=== PATIENT | male | born 1940 | race Caucasian/White ===

== ENCOUNTER 2020-06-11 09:58 | Inpatient (IN) ==
[2020-06-11] MEDS ORDERED: CeFAZolin Syr 2,000MG/20 ML 2,000 MG/20 ML SYRINGE IVPB ONE (10:28)
[2020-06-11] MEDS ORDERED: Chlorhexidine Rinse 15 ML MOUTHWASH MM STA (10:29)
[2020-06-11] MEDS: Ringers Solution, Lactated 1,000 ML IVC SCH (11:00)
[2020-06-11] MEDS ORDERED: Dextrose 50 % in Water (Vial) 30 ML, Sodium Bicarbonate 20 MEQ, Lidocaine 1% 5 ML, Insu... TH ONE ×3 (11:20)
[2020-06-11] MEDS ORDERED: Norepinephrine 4 MG in 0.9 % Sodium Chloride 250 ML IVC PRN (11:20)
[2020-06-11] MEDS ORDERED: Insulin Human Regular 100 UNIT in 0.9 % Sodium Chloride 100 ML IV PRN (11:20)
[2020-06-11] MEDS ORDERED: Heparin 15,000 UNIT in 0.9 % Sodium Chloride 500 ML IV ONE (11:20)
[2020-06-11] MEDS ORDERED: Dextrose 50 % in Water (Vial) 30 ML, Sodium Bicarbonate 20 MEQ, Potassium Chloride 15 M... TH ONE (11:20)
[2020-06-11] MEDS ORDERED: *HR* FentaNYL (PF) 1,000 MCG/20 ML VIAL ONE (11:53)
[2020-06-11] MEDS ORDERED: *HR* Midazolam HCl 5 MG/5 ML VIAL IVP ONE (11:53)
[2020-06-11] MEDS ORDERED: *HR* Propofol 200 MG/20 ML VIAL IVP ONE (11:53)
[2020-06-11] MEDS ORDERED: *HR* Rocuronium Bromide 50 MG/5 ML VIAL ONE ×3 (11:56→16:22)
[2020-06-11] MEDS ORDERED: Dexamethasone 4 MG/ML VIAL ONE (11:56)
[2020-06-11] MEDS ORDERED: *HR* PHENYLEPHRINE 1,000 MCG/10 ML SYRINGE IVP ONE (11:56)
[2020-06-11] MEDS ORDERED: Lidocaine 2% Syringe 100 MG/5 ML ONE (11:57)
[2020-06-11] MEDS ORDERED: Famotidine 20 MG/2 ML VIAL ONE (11:57)
[2020-06-11] MEDS ORDERED: Tranexamic Acid 1,000 MG/10 ML VIAL ONE (11:57)
[2020-06-11] MEDS ORDERED: *HR* Magnesium Sulfate 1 GM/2 ML VIAL ONE (11:57)
[2020-06-11] MEDS ORDERED: Albumin Human 25% 25 GM/100 ML IV.SOLN IVPB ONE (12:22)
[2020-06-11] MEDS ORDERED: Mannitol 25% vial 12.5 GM/50 ML VIAL IVPB ONE (12:22)
[2020-06-11] MEDS ORDERED: Lidocaine 2% Syringe 100 MG/5 ML IVP ONE (12:22)
[2020-06-11] MEDS ORDERED: *HR* Phenylephrine 10 MG/ML VIAL IVC ONE (12:22)
[2020-06-11] MEDS ORDERED: *HR* Heparin 10,000 UNIT/10 ML VIAL IR ONE (12:22)
[2020-06-11] MEDS ORDERED: Tranexamic Acid 1,000 MG/10 ML VIAL IR ONE (12:22)
[2020-06-11] MEDS ORDERED: *HR* Magnesium Sulfate 2 GM/50 ML PIGGYBACK IVPB ONE (12:22)
[2020-06-11 12:33] LABS: ABG Base Excess 1 mEq/L (-2 to 3); ABG Chloride 105 mEq/L (98-107); ABG Glucose 83 mg/dL (60-95); ABG HCO3 26 mEq/L (21-27); ABG Ionized Calcium 1.25 mmol/L (1.15-1.35); ABG Oxygen Saturation 100 % (95-98); ABG PCO2 46 mmHg (35-45); ABG PH 7.37 pH Units (7.32-7.45); ABG PO2 263 mmHg (85-104); ABG TCO2 28 mEq/L (20-26)
[2020-06-11 14:20] LABS: ABG Base Excess 0 mEq/L (-2 to 3); ABG Chloride 108 mEq/L (98-107); ABG Glucose 73 mg/dL (60-95); ABG HCO3 25 mEq/L (21-27); ABG Ionized Calcium 1.14 mmol/L (1.15-1.35); ABG Oxygen Saturation 100 % (95-98); ABG PCO2 43 mmHg (35-45); ABG PH 7.37 pH Units (7.32-7.45); ABG PO2 304 mmHg (85-104); ABG TCO2 26 mEq/L (20-26)
[2020-06-11 14:51] LABS: ABG Base Excess 4 mEq/L (-2 to 3); ABG Chloride 101 mEq/L (98-107); ABG Glucose 128 mg/dL (60-95); ABG HCO3 27 mEq/L (21-27); ABG Ionized Calcium 1.05 mmol/L (1.15-1.35); ABG Oxygen Saturation 100 % (95-98); ABG PCO2 34 mmHg (35-45); ABG PH 7.51 pH Units (7.32-7.45); ABG PO2 471 mmHg (85-104); ABG TCO2 28 mEq/L (20-26)
[2020-06-11] MEDS ORDERED: *HR* Amiodarone 150 MG/3 ML VIAL IVPB ONE (15:43)
[2020-06-11] MEDS ORDERED: Amiodarone Premix 360 MG/200 ML BAG IVC ONE ×2 (15:43→17:08)
[2020-06-11] MEDS ORDERED: Protamine Sulfate 250 MG/25 ML VIAL IVP ONE (15:43)
[2020-06-11] MEDS ORDERED: Calcium Gluconate 1,000 MG/10 ML VIAL ONE (15:43)
[2020-06-11] MEDS ORDERED: Albumin Human 5% 0 GM/0 ML IV.SOLN ONE (15:47)
[2020-06-11] MEDS ORDERED: 0.9 % Sodium Chloride 250 ML ONE (15:48)
[2020-06-11 15:54] LABS: ABG Base Excess 3 mEq/L (-2 to 3); ABG Chloride 103 mEq/L (98-107); ABG Glucose 108 mg/dL (60-95); ABG HCO3 27 mEq/L (21-27); ABG Ionized Calcium 1.13 mmol/L (1.15-1.35); ABG Oxygen Saturation 100 % (95-98); ABG PCO2 39 mmHg (35-45); ABG PH 7.45 pH Units (7.32-7.45); ABG PO2 509 mmHg (85-104); ABG TCO2 28 mEq/L (20-26)
[2020-06-11 16:13] LABS: ABG Base Excess 3 mEq/L (-2 to 3); ABG Chloride 103 mEq/L (98-107); ABG Glucose 72 mg/dL (60-95); ABG HCO3 27 mEq/L (21-27); ABG Ionized Calcium 1.42 mmol/L (1.15-1.35); ABG Oxygen Saturation 100 % (95-98); ABG PCO2 42 mmHg (35-45); ABG PH 7.42 pH Units (7.32-7.45); ABG PO2 376 mmHg (85-104); ABG TCO2 29 mEq/L (20-26)
[2020-06-11] MEDS ORDERED: Albumin Human 5% 12.5 GM/250 ML IV.SOLN ONE (16:38)
[2020-06-11 16:44] LABS: ABG Base Excess 0 mEq/L (-2 to 3); ABG Chloride 108 mEq/L (98-107); ABG Glucose 59 mg/dL (60-95); ABG HCO3 24 mEq/L (21-27); ABG Ionized Calcium 1.19 mmol/L (1.15-1.35); ABG Oxygen Saturation 100 % (95-98); ABG PCO2 36 mmHg (35-45); ABG PH 7.44 pH Units (7.32-7.45); ABG PO2 308 mmHg (85-104); ABG TCO2 25 mEq/L (20-26)
[2020-06-11] MEDS ORDERED: *HR* Dextrose 50 % in Water (Syg) 50 ML SYRINGE ONE (16:44)
[2020-06-11] MEDS ORDERED: Ondansetron 4 MG/2 ML VIAL IVP PRN (17:08)
[2020-06-11] MEDS ORDERED: Calcium Gluconate 1gm/50mL 1 GM/50 ML BAG IVPB PRN (17:08)
[2020-06-11] MEDS ORDERED: Albumin Human 5% 12.5 GM/250 ML IV.SOLN IVPB PRN (17:08)
[2020-06-11] MEDS ORDERED: *HR* Dextrose 50 % in Water (Vial) 50 ML VIAL IVP PRN (17:08)
[2020-06-11] MEDS ORDERED: Naloxone 0.4 MG/ML INJ IVP PRN (17:08)
[2020-06-11] MEDS ORDERED: Acetaminophen 650 MG RECTAL SUPP RC PRN (17:08)
[2020-06-11] MEDS ORDERED: Insulin Regular, Human 100 UNIT/ML IV PRN (17:08)
[2020-06-11] MEDS ORDERED: Potassium Chloride 40 MEQ/200 ML BAG IVPB PRN (17:08)
[2020-06-11] MEDS ORDERED: Insulin Human Regular 100 UNIT in 0.9 % Sodium Chloride 100 ML IVC SCH (17:15)
[2020-06-11] MEDS ORDERED: niCARdipine 20 MG/200 ML MLS IVC ONE (17:47)
[2020-06-11] MEDS: niCARdipine 20 MG/200 ML MLS IVC SCH ×3 (18:00→23:35)
[2020-06-11 18:10] LABS: Basophils % 0.3 %; Eosinophils # 0.1 K/mcL (0.0-0.6); Eosinophils % 0.4 %; Hematocrit 31.4 % (37.5-50.1); Hemoglobin 10.5 g/dL (12.9-16.9); Immature Granulocytes % 0.6 % (0-4); Lymphocytes # 0.6 K/mcL (0.6-4.6); Lymphocytes % 4.8 %; Mean Corpuscular HGB Conc 33.4 g/dL (31.6-35.5); Mean Corpuscular Hemoglobin 27.5 pg (28.0-33.3); Mean Corpuscular Volume 82.2 fL (83.0-100.0); Monocytes # 0.7 K/mcL (0.0-1.3); Monocytes % 5.7 %; Platelet Count 125 K/mcL (140-400); Red Blood Count 3.82 M/mcL (4.19-5.50); Red Cell Distribution Width 12.6 % (11.5-14.5); Segmented Neutrophils % 88.2 %; White Blood Count 12.2 K/mcL (4.3-11.1)
[2020-06-11 18:11] LABS: Neutrophils # 10.8 K/mcL (1.6-8.9)
[2020-06-11 18:17] LABS: ABG Base Excess 2 mEq/L (-2 to 3); ABG HCO3 26 mEq/L (21-27); ABG Oxygen Saturation 99 % (95-98); ABG PCO2 41 mmHg (35-45); ABG PH 7.42 pH Units (7.32-7.45); ABG PO2 122 mmHg (85-104); ABG TCO2 28 mEq/L (20-26)
[2020-06-11] MEDS: Pantoprazole 40 MG VIAL IVP SCH (18:29)
[2020-06-11] MEDS: Metoclopramide 10 MG/2 ML VIAL IVP SCH (18:29)
[2020-06-11 18:31] LABS: BUN/Creatinine Ratio 14 (6-26); Blood Urea Nitrogen 16 mg/dL (8-23); Calcium 8.7 mg/dL (8.6-10.3); Carbon Dioxide 27 mEq/L (23-29); Chloride 108 mEq/L (98-107); Glucose 139 mg/dL (70-105); Magnesium 2.5 mg/dL (1.6-2.6); Osmolality,Calculated 291 (280-300); Potassium 3.9 mEq/L (3.5-5.1); Sodium 139 mEq/L (136-145); eGFR For African Americans > 60 (> 60); eGFR For Non-African Americans > 60 (> 60)
[2020-06-11] MEDS: 0.9 % Sodium Chloride w KCl 20 MEQ/1,000 ML MLS IVC SCH (18:50)
[2020-06-11 19:05] LABS: INR 1.2; Prothrombin Time 13.5 Seconds (9.4-12.1)
[2020-06-11 19:07] LABS: Activated Partial Thrombo Time 30.3 Seconds (26.0-36.0)
[2020-06-11] MEDS: Norepinephrine 4 MG/254 ML IV.SOLN IVC SCH (20:13)
[2020-06-11] MEDS: Chlorhexidine Rinse 15 ML MOUTHWASH MM SCH (20:23)
[2020-06-11] MEDS: Furosemide 20 MG/2 ML VIAL IVP SCH (20:23)
[2020-06-11] MEDS: *HR* OxyCODONE/APAP 5/325 TABLET PO PRN (20:24)
[2020-06-11] MEDS: CeFAZolin 2 GM/120 ML BAG IVPB SCH (20:28)
[2020-06-11] MEDS: *HR* FentaNYL (PF) 100 MCG/2 ML VIAL IVP PRN (20:56)
[2020-06-11] MEDS: Amiodarone Premix 360 MG/200 ML BAG IVC SCH (21:42)
[2020-06-11 22:06] LABS: ABG Base Excess 0 mEq/L (-2 to 3); ABG HCO3 25 mEq/L (21-27); ABG Oxygen Saturation 99 % (95-98); ABG PCO2 40 mmHg (35-45); ABG PO2 145 mmHg (85-104); ABG TCO2 26 mEq/L (20-26); Blood Gas Modality ASSIST CONTROL; Blood Gas VT 600 cc
[2020-06-12] MEDS: Metoclopramide 10 MG/2 ML VIAL IVP SCH ×4 (00:38→18:31)
[2020-06-12] MEDS: *HR* OxyCODONE/APAP 5/325 TABLET PO PRN ×3 (00:39→18:22)
[2020-06-12 02:09] LABS: ABG Base Excess -1 mEq/L (-2 to 3); ABG HCO3 24 mEq/L (21-27); ABG Oxygen Saturation 96 % (95-98); ABG PCO2 39 mmHg (35-45); ABG PO2 83 mmHg (85-104); ABG TCO2 25 mEq/L (20-26)
[2020-06-12 04:56] LABS: Basophils % 0.1 %; Hematocrit 31.9 % (37.5-50.1); Hemoglobin 10.9 g/dL (12.9-16.9); Immature Granulocytes % 0.3 % (0-4); Lymphocytes % 7.2 %; Mean Corpuscular HGB Conc 34.2 g/dL (31.6-35.5); Mean Corpuscular Hemoglobin 28.9 pg (28.0-33.3); Mean Corpuscular Volume 84.6 fL (83.0-100.0); Mean Platelet Volume 10.8 fL (9.4-12.4); Monocytes # 0.9 K/mcL (0.0-1.3); Monocytes % 6.7 %; Neutrophils # 11.6 K/mcL (1.6-8.9); Platelet Count 146 K/mcL (140-400); Red Blood Count 3.77 M/mcL (4.19-5.50); Segmented Neutrophils % 85.7 %; White Blood Count 13.5 K/mcL (4.3-11.1)
[2020-06-12 04:58] LABS: INR 1.2; Prothrombin Time 13.5 Seconds (9.4-12.1)
[2020-06-12 05:00] LABS: Activated Partial Thrombo Time 26.1 Seconds (26.0-36.0)
[2020-06-12 05:03] LABS: Calcium 8.5 mg/dL (8.6-10.3); Magnesium 2.1 mg/dL (1.6-2.6); Potassium 3.8 mEq/L (3.5-5.1)
[2020-06-12] MEDS: niCARdipine 20 MG/200 ML MLS IVC SCH ×4 (05:12→20:11)
[2020-06-12] MEDS: *HR* FentaNYL (PF) 100 MCG/2 ML VIAL IVP PRN (06:11)
[2020-06-12] MEDS: CeFAZolin 2 GM/120 ML BAG IVPB SCH (06:11)
[2020-06-12] MEDS ORDERED: D5% in Water 1,000 ML IVC PRN (07:49)
[2020-06-12] MEDS ORDERED: Dextrose Gel 15 GM/37.5 ML TUBE PO PRN ×2 (07:49)
[2020-06-12] MEDS ORDERED: *HR* Dextrose 50 % in Water (Vial) 50 ML VIAL IVP PRN (07:49)
[2020-06-12] MEDS: Aspirin Enteric Coated 81 MG Tablet PO SCH (07:50)
[2020-06-12] MEDS: Chlorhexidine Rinse 15 ML MOUTHWASH MM SCH ×2 (07:50→20:09)
[2020-06-12] MEDS: Furosemide 20 MG/2 ML VIAL IVP SCH ×2 (07:50→20:10)
[2020-06-12] MEDS: Pantoprazole 40 MG VIAL IVP SCH (07:51)
[2020-06-12] MEDS: Amiodarone Premix 360 MG/200 ML BAG IVC SCH ×2 (08:08→20:09)
[2020-06-12] MEDS: *HR* Heparin 5,000 UNIT/ML VIAL SQ SCH ×2 (08:15→18:32)
[2020-06-12] MEDS: Acetaminophen 325 MG TABLET PO PRN (11:47)
[2020-06-12] MEDS: Insulin LISPRO 300 UNITS/3 ML VIAL SQ SCH ×3 (11:48→20:11)
[2020-06-12] MEDS: 0.9 % Sodium Chloride w KCl 20 MEQ/1,000 ML MLS IVC SCH (15:39)
[2020-06-12] MEDS: Norepinephrine 4 MG/254 ML IV.SOLN IVC SCH (19:25)
[2020-06-12] MEDS: Ringers Solution, Lactated 1,000 ML IVC SCH (19:25)
[2020-06-13] MEDS: Metoclopramide 10 MG/2 ML VIAL IVP SCH ×5 (00:36→23:19)
[2020-06-13] MEDS: *HR* OxyCODONE/APAP 5/325 TABLET PO PRN ×3 (01:02→23:46)
[2020-06-13] MEDS: niCARdipine 20 MG/200 ML MLS IVC SCH ×5 (01:59→23:20)
[2020-06-13 05:06] LABS: Basophils % 0.2 %; Hemoglobin 9.5 g/dL (12.9-16.9); Immature Granulocytes % 0.6 % (0-4); Lymphocytes # 1.2 K/mcL (0.6-4.6); Lymphocytes % 9.1 %; Mean Corpuscular HGB Conc 32.8 g/dL (31.6-35.5); Mean Corpuscular Hemoglobin 28.4 pg (28.0-33.3); Mean Corpuscular Volume 86.8 fL (83.0-100.0); Mean Platelet Volume 10.6 fL (9.4-12.4); Monocytes % 7.5 %; Neutrophils # 10.7 K/mcL (1.6-8.9); Platelet Count 144 K/mcL (140-400); Red Blood Count 3.34 M/mcL (4.19-5.50); Red Cell Distribution Width 13.4 % (11.5-14.5); Segmented Neutrophils % 82.6 %
[2020-06-13 05:32] LABS: Potassium 4.7 mEq/L (3.5-5.1)
[2020-06-13] MEDS: Acetaminophen 325 MG TABLET PO PRN ×2 (05:53→20:20)
[2020-06-13] MEDS: *HR* Heparin 5,000 UNIT/ML VIAL SQ SCH ×2 (05:59→17:13)
[2020-06-13] MEDS: Insulin LISPRO 300 UNITS/3 ML VIAL SQ SCH ×4 (07:23→20:15)
[2020-06-13] MEDS: Furosemide 20 MG/2 ML VIAL IVP SCH (07:26)
[2020-06-13] MEDS: Aspirin Enteric Coated 81 MG Tablet PO SCH (08:01)
[2020-06-13] MEDS: Pantoprazole 40 MG VIAL IVP SCH (08:01)
[2020-06-13] MEDS: Chlorhexidine Rinse 15 ML MOUTHWASH MM SCH ×2 (08:01→20:14)
[2020-06-13] MEDS: Ringers Solution, Lactated 1,000 ML IVC SCH (08:02)
[2020-06-13] MEDS: Amiodarone Premix 360 MG/200 ML BAG IVC SCH ×2 (09:20→21:40)
[2020-06-13] MEDS ORDERED: 0.9 % Sodium Chloride 500 ML IVC ONE (09:59)
[2020-06-13 10:26] LABS: Bilirubin,Urine Negative (Negative); Blood,Urine Moderate (Negative); Clarity,Urine Turbid (Clear); Color,Urine Yellow (Yellow); Glucose,Urine (UA) 50 mg/dL (Normal); Granular Casts,Urine Few per lpf (None Seen); Hyaline Casts,Urine Many per lpf (None Seen); Ketones,Urine Negative (Negative); Leukocyte Esterase,Urine Negative (Negative); Mucus,Urine Few per lpf (None-Few); Nitrite,Urine Negative (Negative); PH,Urine 5.5 pH Units (5.0-8.0); Protein,Urine 200 mg/dL (Neg-Trace); RBC,Urine 15-30 per hpf (0-3); Renal Epithelial Cells,Urine Few per hpf (None-Few); Squamous Epithelial Cell,Urine Few per hpf (None-Few); Transitional Epi Cells,Urine Few per hpf (None-Few); Urobilinogen,Urine Normal (Normal)
[2020-06-13 10:37] LABS: Complement C3 100 mg/dL (87-200)
[2020-06-13 10:38] LABS: Uric Acid 6.5 mg/dL (2.3-7.6)
[2020-06-13 10:45] LABS: Creatinine,Urine 147 mg/dL
[2020-06-13 10:46] LABS: Microalbumin,Urine > 1350 mg/L; Protein/Creatinine Ratio,Urine 1.46 mg/mg (0.00-0.20)
[2020-06-13] MEDS: Norepinephrine 4 MG/254 ML IV.SOLN IVC SCH (11:02)
[2020-06-14 04:15] LABS: Basophils % 0.1 %; Eosinophils % 0.2 %; Hematocrit 26.9 % (37.5-50.1); Hemoglobin 8.7 g/dL (12.9-16.9); Immature Granulocytes % 0.5 % (0-4); Lymphocytes # 0.9 K/mcL (0.6-4.6); Lymphocytes % 8.5 %; Mean Corpuscular HGB Conc 32.3 g/dL (31.6-35.5); Mean Corpuscular Hemoglobin 27.6 pg (28.0-33.3); Mean Corpuscular Volume 85.4 fL (83.0-100.0); Mean Platelet Volume 10.8 fL (9.4-12.4); Monocytes # 0.7 K/mcL (0.0-1.3); Neutrophils # 8.9 K/mcL (1.6-8.9); Nucleated Red Blood Cells 0.5 /100 WBC (0); Platelet Count 116 K/mcL (140-400); Red Blood Count 3.15 M/mcL (4.19-5.50); Red Cell Distribution Width 13.2 % (11.5-14.5); Segmented Neutrophils % 83.7 %; White Blood Count 10.6 K/mcL (4.3-11.1)
[2020-06-14 04:36] LABS: Calcium 7.6 mg/dL (8.6-10.3); Potassium 4.2 mEq/L (3.5-5.1)
[2020-06-14] MEDS: niCARdipine 20 MG/200 ML MLS IVC SCH ×6 (05:15→21:11)
[2020-06-14] MEDS: Metoclopramide 10 MG/2 ML VIAL IVP SCH ×2 (05:17→11:44)
[2020-06-14] MEDS: *HR* Heparin 5,000 UNIT/ML VIAL SQ SCH ×2 (05:18→19:09)
[2020-06-14] MEDS: Aspirin Enteric Coated 81 MG Tablet PO SCH (08:48)
[2020-06-14] MEDS: Pantoprazole 40 MG VIAL IVP SCH (08:48)
[2020-06-14] MEDS: Chlorhexidine Rinse 15 ML MOUTHWASH MM SCH ×2 (08:48→19:57)
[2020-06-14] MEDS: Insulin LISPRO 300 UNITS/3 ML VIAL SQ SCH ×3 (08:49→20:00)
[2020-06-14] MEDS: Amiodarone Premix 360 MG/200 ML BAG IVC SCH (09:39)
[2020-06-14] MEDS: Albumin 25% 25gram/100mL 25 GM/100 ML IV.SOLN IVPB SCH ×3 (10:43→14:35)
[2020-06-14] MEDS ORDERED: Insulin LISPRO 300 UNITS/3 ML VIAL SUBQ SCH (17:15)
[2020-06-14] MEDS: Norepinephrine 4 MG/254 ML IV.SOLN IVC SCH (17:38)
[2020-06-14] MEDS: *HR* OxyCODONE/APAP 5/325 TABLET PO PRN (23:38)
[2020-06-15] MEDS: Amiodarone Premix 360 MG/200 ML BAG IVC SCH (02:36)
[2020-06-15] MEDS: niCARdipine 20 MG/200 ML MLS IVC SCH (04:10)
[2020-06-15 04:25] LABS: Basophils % 0.1 %
[2020-06-15 04:27] LABS: Eosinophils % 0.4 %; Hematocrit 25.3 % (37.5-50.1); Hemoglobin 8.3 g/dL (12.9-16.9); Immature Granulocytes % 0.5 % (0-4); Immature Platelets 3.9 % (1.1-6.1); Lymphocytes # 0.8 K/mcL (0.6-4.6); Lymphocytes % 8.1 %; Mean Corpuscular HGB Conc 32.8 g/dL (31.6-35.5); Mean Corpuscular Hemoglobin 27.9 pg (28.0-33.3); Mean Corpuscular Volume 84.9 fL (83.0-100.0); Monocytes # 0.6 K/mcL (0.0-1.3); Monocytes % 6.8 %; Nucleated Red Blood Cells 0.2 /100 WBC (0); Platelet Count 122 K/mcL (140-400); Red Blood Count 2.98 M/mcL (4.19-5.50); Segmented Neutrophils % 84.1 %; White Blood Count 9.2 K/mcL (4.3-11.1)
[2020-06-15 04:29] LABS: Neutrophils # 7.7 K/mcL (1.6-8.9)
[2020-06-15 04:44] LABS: Calcium 8.1 mg/dL (8.6-10.3); Potassium 4.1 mEq/L (3.5-5.1)
[2020-06-15] MEDS: *HR* Heparin 5,000 UNIT/ML VIAL SQ SCH ×2 (05:12→17:04)
[2020-06-15] MEDS ORDERED: Insulin Regular, Human 100 UNIT/ML IV PRN (07:03)
[2020-06-15] MEDS ORDERED: Naloxone 0.4 MG/ML INJ IVP PRN (07:03)
[2020-06-15] MEDS ORDERED: Dextrose Gel 15 GM/37.5 ML TUBE PO PRN ×2 (07:03)
[2020-06-15] MEDS ORDERED: D5% in Water 1,000 ML IVC PRN (07:03)
[2020-06-15] MEDS ORDERED: Acetaminophen 325 MG TABLET PO PRN (07:03)
[2020-06-15] MEDS ORDERED: Ondansetron 4 MG/2 ML VIAL IVP PRN (07:03)
[2020-06-15] MEDS ORDERED: *HR* Dextrose 50 % in Water (Vial) 50 ML VIAL IVP PRN (07:03)
[2020-06-15] MEDS: Insulin LISPRO 300 UNITS/3 ML VIAL SUBQ SCH ×4 (07:43→20:44)
[2020-06-15] MEDS: GuaiFENesin/Dextromethorphan TABLET PO SCH ×2 (07:55→20:44)
[2020-06-15] MEDS: Aspirin Enteric Coated 81 MG Tablet PO SCH (07:56)
[2020-06-15] MEDS: *HR* Amiodarone 200 MG TABLET PO SCH (07:56)
[2020-06-15] MEDS: Apremilast [Otezla] 30 MG PO SCH (07:57)
[2020-06-15] MEDS: Chlorhexidine Rinse 15 ML MOUTHWASH MM SCH ×2 (07:57→20:44)
[2020-06-15 13:02] LABS: ANA IgG by ELISA DETECTED (None Detected)
[2020-06-15 16:32] LABS: Serine Protease-3 Antibody 0 AU/mL (0-19)
[2020-06-15] MEDS: *HR* OxyCODONE/APAP 5/325 TABLET PO PRN ×2 (18:42→22:37)
[2020-06-16] MEDS: *HR* Heparin 5,000 UNIT/ML VIAL SQ SCH ×2 (05:55→17:41)
[2020-06-16] MEDS: Chlorhexidine Rinse 15 ML MOUTHWASH MM SCH ×2 (07:45→20:23)
[2020-06-16] MEDS: *HR* Amiodarone 200 MG TABLET PO SCH (07:46)
[2020-06-16] MEDS: GuaiFENesin/Dextromethorphan TABLET PO SCH ×2 (07:46→20:23)
[2020-06-16] MEDS: Apremilast [Otezla] 30 MG PO SCH (07:46)
[2020-06-16] MEDS: Aspirin Enteric Coated 81 MG Tablet PO SCH (07:46)
[2020-06-16] MEDS: Insulin LISPRO 300 UNITS/3 ML VIAL SUBQ SCH ×4 (07:47→20:23)
[2020-06-16 10:02] LABS: Basophils % 0.1 %; Eosinophils # 0.2 K/mcL (0.0-0.6); Eosinophils % 2.3 %; Hematocrit 30.1 % (37.5-50.1); Hemoglobin 9.6 g/dL (12.9-16.9); Immature Granulocytes % 0.6 % (0-4); Lymphocytes # 0.7 K/mcL (0.6-4.6); Lymphocytes % 8.5 %; Mean Corpuscular HGB Conc 31.9 g/dL (31.6-35.5); Mean Corpuscular Hemoglobin 27.5 pg (28.0-33.3); Mean Corpuscular Volume 86.2 fL (83.0-100.0); Mean Platelet Volume 10.7 fL (9.4-12.4); Monocytes # 0.6 K/mcL (0.0-1.3); Monocytes % 7.5 %; Neutrophils # 6.9 K/mcL (1.6-8.9); Platelet Count 199 K/mcL (140-400); Red Blood Count 3.49 M/mcL (4.19-5.50); Red Cell Distribution Width 13.2 % (11.5-14.5); White Blood Count 8.5 K/mcL (4.3-11.1)
[2020-06-16 10:18] LABS: Calcium 8.4 mg/dL (8.6-10.3)
[2020-06-16 18:43] LABS: ANA HEp-2 IgG IFA DETECTED (<1:80); Anti Nuclear Ab Pattern SPECKLED
[2020-06-16] MEDS: *HR* OxyCODONE/APAP 5/325 TABLET PO PRN (20:22)
[2020-06-17 05:01] LABS: Basophils % 0.1 %; Eosinophils # 0.2 K/mcL (0.0-0.6); Eosinophils % 2.8 %; Hematocrit 28.2 % (37.5-50.1); Hemoglobin 9.1 g/dL (12.9-16.9); Immature Granulocytes % 0.4 % (0-4); Lymphocytes % 14.3 %; Mean Corpuscular HGB Conc 32.3 g/dL (31.6-35.5); Mean Corpuscular Hemoglobin 27.3 pg (28.0-33.3); Mean Corpuscular Volume 84.7 fL (83.0-100.0); Mean Platelet Volume 10.6 fL (9.4-12.4); Monocytes # 0.7 K/mcL (0.0-1.3); Monocytes % 9.3 %; Neutrophils # 5.2 K/mcL (1.6-8.9); Platelet Count 192 K/mcL (140-400); Red Blood Count 3.33 M/mcL (4.19-5.50); Red Cell Distribution Width 13.2 % (11.5-14.5); Segmented Neutrophils % 73.1 %; White Blood Count 7.1 K/mcL (4.3-11.1)
[2020-06-17 05:20] LABS: Calcium 8.1 mg/dL (8.6-10.3); Magnesium 2.1 mg/dL (1.6-2.6); Potassium 4.3 mEq/L (3.5-5.1)
[2020-06-17] MEDS: *HR* Heparin 5,000 UNIT/ML VIAL SQ SCH ×2 (06:25→18:23)
[2020-06-17] MEDS: Chlorhexidine Rinse 15 ML MOUTHWASH MM SCH ×2 (07:54→20:42)
[2020-06-17] MEDS: *HR* Amiodarone 200 MG TABLET PO SCH (07:55)
[2020-06-17] MEDS: Aspirin Enteric Coated 81 MG Tablet PO SCH (07:55)
[2020-06-17] MEDS: GuaiFENesin/Dextromethorphan TABLET PO SCH ×2 (07:55→20:41)
[2020-06-17] MEDS: Apremilast [Otezla] 30 MG PO SCH (07:55)
[2020-06-17] MEDS: Insulin LISPRO 300 UNITS/3 ML VIAL SUBQ SCH ×4 (08:01→20:42)
[2020-06-17] MEDS: *HR* OxyCODONE/APAP 5/325 TABLET PO PRN ×2 (10:30→20:42)
[2020-06-17] MEDS ORDERED: Furosemide 40 MG/4 ML VIAL IVP ONE (14:07)
[2020-06-18 05:04] LABS: Calcium 8.1 mg/dL (8.6-10.3); Potassium 4.5 mEq/L (3.5-5.1)
[2020-06-18] MEDS: *HR* Heparin 5,000 UNIT/ML VIAL SQ SCH ×2 (06:08→17:26)
[2020-06-18] MEDS: *HR* Amiodarone 200 MG TABLET PO SCH (09:01)
[2020-06-18] MEDS: Aspirin Enteric Coated 81 MG Tablet PO SCH (09:02)
[2020-06-18] MEDS: GuaiFENesin/Dextromethorphan TABLET PO SCH ×2 (09:02→21:01)
[2020-06-18] MEDS: Chlorhexidine Rinse 15 ML MOUTHWASH MM SCH ×2 (09:02→21:01)
[2020-06-18] MEDS: Insulin LISPRO 300 UNITS/3 ML VIAL SUBQ SCH ×4 (09:02→21:02)
[2020-06-18] MEDS: Apremilast [Otezla] 30 MG PO SCH (09:03)
[2020-06-19 03:22] LABS: Basophils % 0.2 %; Eosinophils # 0.2 K/mcL (0.0-0.6); Hematocrit 30.2 % (37.5-50.1); Hemoglobin 9.9 g/dL (12.9-16.9); Immature Granulocytes % 0.4 % (0-4); Lymphocytes # 1.3 K/mcL (0.6-4.6); Lymphocytes % 14.5 %; Mean Corpuscular HGB Conc 32.8 g/dL (31.6-35.5); Mean Corpuscular Volume 85.6 fL (83.0-100.0); Mean Platelet Volume 10.4 fL (9.4-12.4); Monocytes # 0.8 K/mcL (0.0-1.3); Monocytes % 9.3 %; Neutrophils # 6.5 K/mcL (1.6-8.9); Platelet Count 274 K/mcL (140-400); Red Blood Count 3.53 M/mcL (4.19-5.50); Red Cell Distribution Width 13.2 % (11.5-14.5); Segmented Neutrophils % 73.6 %; White Blood Count 8.9 K/mcL (4.3-11.1)
[2020-06-19 03:24] LABS: Calcium 8.1 mg/dL (8.6-10.3); Potassium 4.3 mEq/L (3.5-5.1)
[2020-06-19] MEDS: *HR* Heparin 5,000 UNIT/ML VIAL SQ SCH (05:54)
[2020-06-19] MEDS: Chlorhexidine Rinse 15 ML MOUTHWASH MM SCH (07:25)
[2020-06-19] MEDS: Aspirin Enteric Coated 81 MG Tablet PO SCH (07:25)
[2020-06-19] MEDS: GuaiFENesin/Dextromethorphan TABLET PO SCH (07:25)
[2020-06-19] MEDS: *HR* Amiodarone 200 MG TABLET PO SCH (07:27)
[2020-06-19] MEDS: Insulin LISPRO 300 UNITS/3 ML VIAL SUBQ SCH ×2 (07:29→12:28)
[2020-06-19] MEDS ORDERED: FLU Vac QV 20-21 (6Month+)/PF 0.5 ML SYRINGE IM ONE (09:59)
[2020-06-19 12:11] VITALS: BP 154/116
== END 2020-06-19 13:31 | disposition home or self-care (01) ==
LOC: SAMDAY 09:58 → ICNU 15:38 → 2NNU 06-17 16:26
PROVIDERS: ADMIT Thoracic Surgery (Cardiothoracic Vascular Surgery); ATTEND Thoracic Surgery (Cardiothoracic Vascular Surgery)

== ENCOUNTER 2020-06-23 15:37 | Observation (INO) ==
[2020-06-23 19:07] LABS: Basophils % 0.3 %; Eosinophils # 0.2 K/mcL (0.0-0.6); Eosinophils % 2.1 %; Hematocrit 33.1 % (37.5-50.1); Hemoglobin 10.6 g/dL (12.9-16.9); Immature Granulocytes % 0.5 % (0-4); Lymphocytes # 1.2 K/mcL (0.6-4.6); Lymphocytes % 12.3 %; Mean Corpuscular Hemoglobin 27.5 pg (28.0-33.3); Mean Platelet Volume 9.5 fL (9.4-12.4); Monocytes # 0.5 K/mcL (0.0-1.3); Monocytes % 4.5 %; Platelet Count 354 K/mcL (140-400); Red Blood Count 3.85 M/mcL (4.19-5.50); Red Cell Distribution Width 13.4 % (11.5-14.5); Segmented Neutrophils % 80.3 %
[2020-06-23 19:14] LABS: INR 1.8
[2020-06-23 19:16] LABS: Activated Partial Thrombo Time 30.6 Seconds (26.0-36.0)
[2020-06-23 19:23] LABS: BUN/Creatinine Ratio 15 (6-26); Blood Urea Nitrogen 20 mg/dL (8-23); Calcium 8.8 mg/dL (8.6-10.3); Carbon Dioxide 26 mEq/L (23-29); Chloride 104 mEq/L (98-107); Glucose 116 mg/dL (70-105); Osmolality,Calculated 286 (280-300); Potassium 3.8 mEq/L (3.5-5.1); Sodium 136 mEq/L (136-145); eGFR For African Americans > 60 (> 60); eGFR For Non-African Americans 52 (> 60)
[2020-06-23] MEDS ORDERED: Isovue-370 500 ML BOTTLE IVP ONE (19:29)
[2020-06-23] MEDS ORDERED: Acetaminophen 325 MG TABLET PO PRN (21:38)
[2020-06-23] MEDS ORDERED: Naloxone 0.4 MG/ML INJ IVP PRN (21:38)
[2020-06-23] MEDS ORDERED: Ondansetron ODT 4 MG TAB.RAPDIS SL PRN (21:38)
[2020-06-23] MEDS ORDERED: Perflutren Lipid Microsphere 1.3 ML in 0.9 % Sodium Chloride 8.7 ML IVP PRN (21:40)
[2020-06-23] MEDS ORDERED: Dextrose Gel 15 GM/37.5 ML TUBE PO PRN ×2 (21:42)
[2020-06-23] MEDS ORDERED: *HR* Dextrose 50 % in Water (Vial) 50 ML VIAL IVP PRN (21:42)
[2020-06-23] MEDS ORDERED: D5% in Water 1,000 ML IVC PRN (21:42)
[2020-06-23] MEDS ORDERED: Insulin LISPRO 300 UNITS/3 ML VIAL SUBQ SCH (21:45)
[2020-06-23] MEDS: Insulin LISPRO 300 UNITS/3 ML VIAL SUBQ SCH (22:49)
[2020-06-24 02:30] LABS: Basophils % 0.2 %; Eosinophils # 0.2 K/mcL (0.0-0.6); Hematocrit 29.8 % (37.5-50.1); Hemoglobin 9.5 g/dL (12.9-16.9); Immature Granulocytes % 0.7 % (0-4); Lymphocytes # 1.1 K/mcL (0.6-4.6); Lymphocytes % 10.4 %; Mean Corpuscular HGB Conc 31.9 g/dL (31.6-35.5); Mean Corpuscular Hemoglobin 27.3 pg (28.0-33.3); Mean Corpuscular Volume 85.6 fL (83.0-100.0); Mean Platelet Volume 9.6 fL (9.4-12.4); Monocytes # 0.5 K/mcL (0.0-1.3); Monocytes % 4.5 %; Neutrophils # 8.8 K/mcL (1.6-8.9); Platelet Count 316 K/mcL (140-400); Red Blood Count 3.48 M/mcL (4.19-5.50); Red Cell Distribution Width 13.4 % (11.5-14.5); Segmented Neutrophils % 82.2 %; White Blood Count 10.7 K/mcL (4.3-11.1)
[2020-06-24 02:32] LABS: INR 1.6; Prothrombin Time 18.2 Seconds (9.4-12.1)
[2020-06-24 02:51] LABS: Albumin 2.7 g/dL (3.5-5.7); Bilirubin,Total 0.4 mg/dL (0.3-1.0); Calcium 8.1 mg/dL (8.6-10.3); Globulin 2.7 g/dL (2.4-3.5); Magnesium 1.7 mg/dL (1.6-2.6); Phosphorous 3.8 mg/dL (2.7-4.5); Potassium 4.2 mEq/L (3.5-5.1); Total Protein 5.4 g/dL (6.4-8.9)
[2020-06-24] MEDS: Insulin LISPRO 300 UNITS/3 ML VIAL SUBQ SCH (08:16)
[2020-06-24] MEDS: Calcium Gluconate 1gm/50mL 1 GM/50 ML BAG IVPB SCH ×2 (08:16→10:53)
[2020-06-24 08:36] VITALS: BP 160/72
[2020-06-24] MEDS ORDERED: Insulin DETEMIR 100 UNIT/ML X5UNITS SUBQ SCH (09:00)
[2020-06-24] MEDS ORDERED: (Apremilast [Otezla] 30 MG) PO SCH (09:00)
[2020-06-24] MEDS ORDERED: *HR* Amiodarone 200 MG TABLET PO SCH (09:00)
== END 2020-06-24 12:58 | disposition home health service (06) ==
LOC: EMEROOARM 15:37 → 3ANU 15:37
PROVIDERS: ADMIT Internal Medicine; ATTEND Internal Medicine